=== PATIENT | male | born 1990 | race African-American/Black ===

== ENCOUNTER 2018-12-15 16:20 | Emergency (ER) | payer SELFPAY ==
[2018-12-15 16:21] VITALS: BP 127/89; PULSE 79; RESP 16; TEMP 36.3; O2SAT 99; BMI 19.3
--- NOTE | 2018-12-15 16:30 | ED.VISSUMM ---
- ER Visit Summary Date of Service: 12/15/18 Chief Complaint: Scabies History of Present Illness: The patient is a 28 M with an itchy rash to his extremities and trunk. He had similar symptoms in the past with scabies. He was exposed to scabies. Physical Examination: Excoriated rash over his extremities and trunk. No sign of erythema or warmth. Test Results: None performed Emergency Department Course and Treatment: Prescription for Elimite. Scabies precautions. Treatment Plan: As above Disposition: Discharge Impression: 1. Scabies This note was generated with [employer] dictation software. It may contain incorrect words, spelling, and punctuation that were not noted in review of the chart prior to signing ED Disposition - Plan for ED Patient: Chief Complaint: Rash Referrals: Care Physician,No Primary [Primary Care Provider] -
--- NOTE | 2018-12-15 16:32 | ED.DEP ---
ED Disposition - Plan for ED Patient: Chief Complaint: Rash Instructions: Scabies Prescriptions: DiphenhydrAMINE [Benadryl] 25 mg PO TID PRN PRN #20 cap PRN Reason: Itching Permethrin [Elimite] 60 gm TP X1 #1 cream..g.
[2018-12-15 16:40] VITALS: PULSE 79; RESP 16; O2SAT 99
== END 2018-12-15 16:49 | disposition home or self-care (01) ==
LOC: ED 16:46
PROVIDERS: Emergency Provider Emergency Medicine
DX: B86 Scabies (principal)
CPT/HCPCS: 99282

== ENCOUNTER 2019-01-14 13:35 | Emergency (ER) | payer SELFPAY ==
[2019-01-14 13:36] VITALS: BP 130/84; PULSE 81; RESP 18; TEMP 36.1; O2SAT 97; BMI 21.4
--- NOTE | 2019-01-14 14:03 | ED.DCSUM_ITS ---
- ER Visit Summary Date of Service: 01/14/19 Chief Complaint: [Chandana] History of Present Illness: The patient is a 28 M [presents the emergency department complaint of itching for the last month. Patient was seen in the emergency department a month ago and diagnosed with scabies and was treated with a topical cream. Patient states that he used it twice and washed all his bedding daily. Patient states that he felt better for a time and a lot of the lesions had resolved but then started having itching again. Patient continues to itch. He denies any fever. Denies any new soaps or detergents. He denies any other medications. Patient believes to scabies his back.] Physical Examination: [HEENT-PERRLA, EOMI. Cranial nerves II through XII grossly intact. TMs clear. Mucous membranes moist. No adenopathy. Cardiovascular-regular rate and rhythm without murmur or ectopy Lungs-clear to auscultation, chest wall stable without crepitus or subcu emphysema Abdomen-normoactive bowel sounds, soft, nontender, no rebound or rigidity, no peritoneal signs. Extremities-intact ?4, normal range of motion, normal pulses, atraumatic. Hands-patient has very few small erythematous papules noted on both hands I do not see any excoriations no significant lesions noted between the digits. I do not see any lesions on his trunk.] Test Results: [None indicated] Emergency Department Course and Treatment: [Patient will be given a prescription for Elimite and Atarax] Treatment Plan: [Prescription for Elimite and Atarax and referral to dermatology] Disposition: [Discharged home in stable condition] Impression: [Pruritus Scabies infestation] This note was generated with [employer] dictation software. It may contain incorrect words, spelling, and punctuation that were not noted in review of the chart prior to signing ED Disposition - Plan for ED Patient: Referrals: Care Physician,No Primary [Primary Care Provider] -
--- NOTE | 2019-01-14 14:03 | ED.DEP ---
ED Disposition - Plan for ED Patient: Instructions: Scabies Prescriptions: hydrOXYzine tablet [Atarax tablet] 10 mg PO 4X/DAY PRN PRN #30 tab PRN Reason: Itching Permethrin [Elimite] 60 gm TP QHS #1 cream..g. Referrals: Care Physician,No Primary [Primary Care Provider] - Solomon Lynn MD [STAFF PHYSICIAN] - 5-7 Days
== END 2019-01-14 14:26 | disposition home or self-care (01) ==
LOC: ED 14:19
PROVIDERS: Emergency Provider Emergency Medicine
DX: B86 Scabies (principal); Z72.0 Tobacco use
CPT/HCPCS: 99282

== ENCOUNTER 2024-09-29 16:57 | Emergency (ER) | payer SELFPAY ==
[2024-09-29 16:57] VITALS: BP 137/86; PULSE 81; RESP 14; TEMP 36.3; O2SAT 100; BMI 20.1
--- NOTE | 2024-09-29 18:22 | EDS_ITS ---
HPI History of Present Illness Chief Complaint: Upper Extremity Injury Detail of Chief Complaint: Numbness tingling left index, long and ring finger Informant: patient Occured/Mechanism Comment: Days, no history of trauma Onset/Context/Timing Onset: Days Context: Sudden Onset Timing: Intermittent Quality of Pain: - (Numbness) Location: Left index, long and ring finger Current Severity: Mild Maximum Severity: Moderate Worsened by: Nothing that he can point to Relieved by: Nothing Associated Symptoms Associated Symptoms: Positive for Parasthesia; Negative for Weakness or Loss of Funtion Narrative Narrative: Patient is a 34-year-old [id number] male who presents with numbness to his left index, long and ring finger.Works as a private chef. He has no physician. He has no history of trauma. He has no other complaints. He is not awakened from sleep with pain or numbness. His concern is that this may represent his heart because its his left side. Prior similar symptoms: No Recent Illness/Hospitalization: No PFSH PFSH Home Medications ?Medication ?Instructions ?Recorded ?Last Taken ?Type diphenhydramine HCl 25 mg capsule 25 mg PO TID PRN PRN Itching #20 12/15/18 Unknown Rx caps permethrin 5 % topical cream 60 gm TP X1 ##1 12/15/18 Unknown Rx hydroxyzine HCl 10 mg tablet 10 mg PO 4X/DAY PRN PRN Itching 01/14/19 Unknown Rx #30 tabs permethrin 5 % topical cream 60 gm TP QHS ##1 01/14/19 Unknown Rx Allergy/AdvReac Type Severity Reaction Status Date / Time venom-honey bee (bee venom Allergy Swelling Verified 01/14/19 13:35 (honey bee)) Surgical History no surgical history no surgical history Social History Smoking Status: Current every day smoker ROS [facility] ED Neurologic Neurologic: Reports paresthesias; Denies headache(s) or weakness Psychiatric Psychiatric: Denies anxiety or depression EXAM Physical Exam Const Vital Signs: 09/29/24 16:57 Temperature 97.3 F L Temperature Source Temporal Pulse Rate 81 Respiratory Rate 14 Blood Pressure 137/86 H Blood Pressure Mean 103 Pulse Ox 100 Oxygen Delivery Method Room Air Positive well nourished and well developed General Appearance ED: well developed and NAD HEENT Reports moist mucous membranes normocephalic and atraumatic Eyes PERRL and EOMs intact bilaterally Resp normal respiratory effort Cardio regular rate and regular rhythm Extremity normal to inspection and full ROM Extremity Narrative: Median, radial and ulnar function intact. 2 point discrimination is normal. Capillary refill is normal. Flexor digitorum superficialis and flexor digitorum profundus are intact index, long, ring and little finger. Extensor Intrasite, extensor commonness and extensor minimized tendon are functionally intact. Patient has a positive Tinel's sign and positive Phalen sign. Neuro oriented x3 and CN's II-XII intact bilaterally Neuro Narrative: Under the extremity portion of the EMR Sensorium / Orientation: alert Psych mental status grossly normal Skin General Skin Exam: Negative for petechiae Lesions: no lesions Rashes: no rashes MDM MDM MDM Narrative Medical decision making narrative: Patient history and physical is consistent with carpal tunnel syndrome. Will treat with cock-up splint and NSAIDs as is no contraindication. Patient been instructed this is not related to his heart. This is not a stroke. Discharge Plan Triage Chief Complaint: Upper Extremity Injury ED Provider: Josh Raymundo Dx/Rx/DC Orders Clinical Impression: Carpal tunnel syndrome on left Instructions: ED Carpal Tunnel Syndrome Prescriptions: No Action permethrin 60 GM cream 60 gm TP X1 Qty: 1 0RF Rx Instructions: use as directed diphenhydramine HCl 25 MG capsule 25 mg PO TID PRN PRN (Reason: Itching) Qty: 20 0RF permethrin 60 GM cream 60 gm TP QHS Qty: 1 0RF Rx Instructions: apply to body at night and reapply the following night hydroxyzine HCl 10 MG tablet 10 mg PO 4X/DAY PRN PRN (Reason: Itching) Qty: 30 0RF Primary Care Provider: Care Physician,No Primary Referrals: Care Physician,No Primary [Primary Care Provider] - Activity Restrictions/Additional Instructions: 1. Recommend follow-up with starts in [place] [facility] if no improvement in 1 to 2 weeks 2. Wear splint during the night when you are asleep 3. Recommend taking either 3 ibuprofen tablets every 8 hours or 2 Aleve tablets every 12 hours for the next 5 to 7 days. If this helps with your symptoms I would continue taking them for a total of 2 weeks. Print Language: [place] Disposition Disposition: Home, Self Care
[2024-09-29] MEDS: Naproxen 500 MG Tablet PO (18:57)
== END 2024-09-29 19:01 | disposition home or self-care (01) ==
LOC: ED 18:33
PROVIDERS: Emergency Provider Emergency Medicine; Referring Provider Emergency Medicine; Visit Provider Emergency Medicine
DX: G56.02 Carpal tunnel syndrome, left upper limb (principal); F17.200 Nicotine dependence, unspecified, uncomplicated
CPT/HCPCS: 99283